=== PATIENT | male | born 1995 | race African-American/Black ===

== ENCOUNTER → 2018-02-26 12:11 | Outpatient (CLI) | payer MEDICAID, SELFPAY ==
--- NOTE | 2018-02-26 12:18 | RAD_ITS ---
STUDY: X-RAY - RIGHT KNEE REASON FOR EXAM: Male, 22 years old. Right knee pain TECHNIQUE: 4 view(s) of the knee. Weight-bearing COMPARISON: None. FINDINGS: Normal visualized distal femur. Normal visualized proximal tibia and fibula. Normal proximal tibiofibular articulation. Normal medial femorotibial compartment. Normal lateral femorotibial compartment. Normal patellofemoral articulation. The joint spaces are maintained The soft tissue structures are unremarkable. RAD/Knee 4 or More Views IMPRESSION: Normal x-ray examination of the knee. Electronically Signed: Abilio Faith DO at 11:02 EDT Tel , Service support ,
== END ==
PROVIDERS: Family Provider Family Medicine; PCP Family Medicine; Referring Provider Family Medicine; Visit Provider Family Medicine
DX: M25.561 Pain in right knee (principal)
CPT/HCPCS: 73564